=== PATIENT | male | born 1980 | race Caucasian/White ===

== ENCOUNTER 2022-02-18 10:20 | Emergency (ER) | payer OTHER ==
[~2022-02-18 10:20] MED LIST: CEFUROXIME500 MG PO; CLARITIN 10MG T10 MG PO; FLUOXETINE HCL40 MG PO; LORTAB 5-325 M1 EACH PO; METOPROLOL TART25 MG PO; PROMETHAZINE HC25 M1 PO; PROTONIX40 MG PO; QUETIAPINE FUM100 MG PO; TESSALON PERLE100 MG PO; TIZANIDINE HCL4 MG PO; VENTOLIN HFA 66.7 GM INH; ZITHROMAX250 MG PO
[2022-02-18] MEDS ORDERED: HYDROCODON-ACE1 EAC2 PO (11:26)
== END 2022-02-18 12:15 | disposition home or self-care (01) ==
LOC: ER1 10:20
DX: S92.311A Displaced fracture of first metatarsal bone, right foot, initial encounter for closed fracture (principal); F17.200 Nicotine dependence, unspecified, uncomplicated; W01.0XXA Fall on same level from slipping, tripping and stumbling without subsequent striking against object, initial encounter
CPT/HCPCS: 29515; 73590; 73610; 73630; 99283